=== PATIENT | female | born 1965 | race Caucasian/White ===

== ENCOUNTER 2020-11-20 09:24 | Emergency (ER) | payer OTHER, SELFPAY ==
[2020-11-20] VITALS (24 sets, daily range): BP systolic 149–200; BP diastolic 73–87; PULSE 57–94; RESP 4–23; TEMP 36.7; O2SAT 67–100
[2020-11-20] MEDS: FAMOTIDINE 20 MG/2 ML VIAL IV PUSH (10:18)
[2020-11-20] MEDS: ONDANSETRON INJ 4 MG/2 ML VIAL IV PUSH (10:18)
[2020-11-20] MEDS: SODIUM CHLORIDE 0.9% IV 1,000 ML 999 ML IV CONT (10:18)
[2020-11-20] MEDS: LORazepam INJ (*CRX) 2 MG/ML VIAL 1 MG IV PUSH (10:27)
[2020-11-20 10:29] LABS: Basophils Absolute Auto 0.1 K/mm3 (0.0-0.1); Basophils Percent Auto 0.6 % (0.2-1.2); Eosinophils Percent Auto 0.4 % (0-4.4); Hematocrit 43.3 % (37.0-47.0); Hemoglobin 14.2 g/dL (12.0-15.0); Immature Granulocyte Absolute 0.04 K/mm3 (0.00-0.031); Immature Granulocyte Percent A 0.4 % (0-0.5); Lymphocytes Absolute Auto 2.88 K/mm3 (0.9-3.2); Lymphocytes Percent Auto 25.8 % (18.3-44.2); Mean Corpuscular HGB Conc 32.8 g/dl (32-36); Mean Corpuscular Hemoglobin 28.7 pg (26-34); Mean Corpuscular Volume 87.7 fl (80-100); Mean Platelet Volume 11.2 fl (7.4-10.4); Monocytes Percent Auto 8.5 % (2.6-8.5); Neutrophils Absolute Auto 7.2 K/mm3 (1.3-6.7); Neutrophils Percent Auto 64.3 % (45.5-73.1); Platelet Count Result 274 k/mm3 (150-375); Red Blood Count 4.94 M/mm3 (4.2-5.4); Red Cell Distribution Width 13.4 % (11.5-14.5); White Blood Count 11.2 K/mm3 (4.5-10.0)
[2020-11-20] MEDS: LACTATED RINGERS 1,000 ML 999 ML IV CONT (12:00)
[2020-11-20 12:18] LABS: Alanine Aminotransferase 28 U/L (4-35); Albumin Level 4.7 g/dL (3.5-5.1); Alkaline Phosphatase 94 U/L (38-126); Anion Gap 14 mmol/L (8-16); Aspartate Amino Transferase 38 U/L (14-36); Bilirubin,Total 0.8 mg/dL (0.2-1.3); Blood Urea Nitrogen 24 mg/dL (7-17); Calcium 9.9 mg/dL (8.4-10.2); Carbon Dioxide 26 mmol/L (22-30); Chloride 97 mmol/L (98-107); Estimated CRCL calculation 89 ml/min; Estimated Glomerular Filt Rate > 60; Glucose 263 mg/dL (65-105); Lipase 76 U/L (23-300); Potassium 3.1 mmol/L (3.4-5.0); Sodium 137 mmol/L (137-145)
[2020-11-20 12:19] LABS: Add Urine Microscopic? YES; Appearance Urine Cloudy (Clear); Bacteria Urine Trace /hpf; Bilirubin Urine Negative (Negative); Blood Urine Negative (Negative); Color Urine Amber (Yellow); Glucose Urine UA 1+ mg/dL (Negative); Ketones Urine 2+ mg/dL (Negative); Leukocyte Esterase Ur Negative LEU/UL (Negative); Mucus Urine Heavy /lpf; Nitrate Urine Positive (Negative); Protein Urine 1+ mg/dL (Negative); RBC Urine 0-2 /hpf (0-2); Specific Grav Ur 1.028 (1.001-1.035); Squamous Epithelial Cell Urine Moderate /hpf (Few)
--- NOTE | 2020-11-20 13:20 | ED.GENADULT ---
HPI - General Adult General Chief complaint: Nausea/Vomiting/Diarrhea Stated complaint: N/V Time Seen by Provider: 11/20/20 09:58 Source: patient, family and RN notes reviewed Mode of arrival: ambulatory Limitations: no limitations History of Present Illness HPI narrative: Patient is a 55-year-old female who presents with nausea and vomiting that began over the weekend and has persisted patient was out of town notes that she had been drinking alcohol and eating unhealthy patient on arrival to emergency department notes nausea but denies any abdominal pain patient does note some generalized aches denies any recent illness or other complaints has not taken anything for her symptoms patient is a diabetic and hypertensive and has had difficult ED keeping her medications down or any p.o. intake at this time Related Data Home Medications Medication Instructions Recorded Confirmed aspirin 81 mg tablet,delayed 81 mg PO DAILY 05/04/19 release Allergies Allergy/AdvReac Type Severity Reaction Status Date / Time cephalexin Allergy Unknown Verified 11/03/16 11:31 codeine Allergy Unknown Verified 11/03/16 11:31 Review of Systems Review of Systems: All systems reviewed & are unremarkable except as noted in HPI and below PMFSH Past Medical History Medical History (Updated 11/20/20 @ 13:26 by Alen Bautista PA-C) Depression Diabetes mellitus Social History Social History Alcohol intake: current Exam Narrative: Exam Narrative: GENERAL: Ill-appearing, obese, and in no acute distress. HEAD: Normocephalic, atraumatic. EYES: PERRLA and EOMI. ENT: Nares clear, no rhinorrhea or epistaxis. Mucous membranes moist. CHEST: Clear to auscultation. No respiratory distress. No wheezes rales or rhonchi HEART: Regular rate and rhythm. No murmur heard. Normal peripheral pulses. ABDOMEN: Soft, nontender, nondistended EXTREMITIES: Normal range of motion. No edema. SKIN: Warm, dry, no rash. NEURO: No focal deficits. Alert and oriented x3. Cranial nerves II through XII grossly intact PSYCH: Normal mood and affect. Course Course Emergency Course: Patient in the room no distress aware of case findings treatment plan diagnosis evaluated the emergency department felt appropriate for outpatient reevaluation agreeing to follow-up with primary care 2 L of fluids were given patient feeling as though she is comfortable to go home tolerating p.o. intake Vital Signs Vital signs: Vital Signs Temperature 98.0 F 11/20/20 09:30 Pulse Rate 67 11/20/20 09:30 Respiratory Rate 19 11/20/20 09:30 Blood Pressure 200/76 H 11/20/20 09:30 Pulse Oximetry 100 11/20/20 09:30 Temperature 98.0 F 11/20/20 09:30 Pulse Rate 88 11/20/20 11:32 Respiratory Rate 18 11/20/20 11:32 Blood Pressure 180/73 H 11/20/20 11:32 Pulse Oximetry 94 11/20/20 11:32 Medical Decision Making MDM Narrative Medical decision making narrative: Patient evaluated the emergency department had improvement with medications will be discharged home with outpatient follow-up we will continue her home medications will be given antibiotic for urinary tract infection provided with reasons to return is afebrile nontoxic-appearing no distress at this time tolerating p.o. intake Vital Signs Vital Signs: Vital Signs Temperature 98.0 F 11/20/20 09:30 Pulse Rate 67 11/20/20 09:30 Respiratory Rate 19 11/20/20 09:30 Blood Pressure 200/76 H 11/20/20 09:30 Pulse Oximetry 100 11/20/20 09:30 Temperature 98.0 F 11/20/20 09:30 Pulse Rate 88 11/20/20 11:32 Respiratory Rate 18 11/20/20 11:32 Blood Pressure 180/73 H 11/20/20 11:32 Pulse Oximetry 94 11/20/20 11:32 Lab Data Result diagrams: 11/20/20 10:16 11/20/20 10:16 Labs: Lab Results 11/20/20 11/20/20 11/20/20 Range/Units 10:16 10:16 12:04 WBC 11.2 H (4.5-10.0) K/mm3 RBC 4.94
== END 2020-11-20 13:40 | disposition home or self-care (01) ==
PROVIDERS: Emergency Medicine Emergency Medical Services; Emergency Provider Emergency Medicine; PCP Emergency Medicine
DX: N39.0 Urinary tract infection, site not specified (principal); R11.2 Nausea with vomiting, unspecified; E11.9 Type 2 diabetes mellitus without complications
CPT/HCPCS: 36415; 80053; 81001; 83690; 85025; 96361; 96374; 96375; 99284; J2060; J2405; J7030; J7120

== ENCOUNTER 2021-04-01 08:17 | Outpatient (CLI) | payer OTHER, SELFPAY ==
--- NOTE | ~2021-04-01 | MM_ITS ---
EXAMINATION: MM screening [facility] w [place] HISTORY: Screening TECHNIQUE: Craniocaudal and mediolateral oblique 3-D tomosynthesis images were obtained and synthetic 2-D images were generated. CAD analysis was submitted and interpreted. COMPARISON: 02/11/2018 BREAST PARENCHYMAL COMPOSITION: FINDINGS: There is no evidence of suspicious mass, calcification, or architectural distortion to sugg est malignancy in either breast. There has been no suspicious interval change. IMPRESSION: 1. No mammographic evidence of malignancy. 2. Recommend routine screening mammography in one year. BI-RADS Category 1: Negative Reviewed, dictated and finalized at location A.
== END 2021-04-01 08:18 | disposition home or self-care (01) ==
LOC: ANHIMG 08:18
PROVIDERS: PCP Emergency Medicine; Visit Provider Emergency Medicine
DX: Z12.31 Encounter for screening mammogram for malignant neoplasm of breast (principal)
CPT/HCPCS: 77063; 77067